=== PATIENT | female | born 1960 | race Caucasian/White ===

== ENCOUNTER 2020-01-02 17:12 | Emergency (ER) | payer MEDICARE ==
--- NOTE | 2020-01-02 18:10 | CT ---
CT OF THE BRAIN WITHOUT CONTRAST: 01/02/20 Comparison is made with the 11/14/08 study. There is no evidence of intracranial bleeding or mass. The ventricles are normal in size for age. Patchy hypolucency in the deep white matter is suggestive of chronic microvascular ischemia, however, there are multiple scattered lacunar infarcts present in thi s patient. These are present in the basal ganglia bilaterally and the thalami bilaterally, but the mo st striking findings are on the left side. A rather sizeable infarct is seen in the left thalamus and left basal ganglia region. My presumption is that these are old but they have occurred since the 13 12 study. Correlate with current clinical symptoms. IMPRESSION: 1. No acute intracranial bleeding. 2. Scattered lacunar infarcts, primarily basal ganglia and thalami, left more prominent than rig ht. Initial report discussed with Dr. Carpenter at 1757 on 01/02/20. POS: HOME
== END 2020-01-02 18:53 | disposition home or self-care (01) ==
LOC: BURERS 17:12
DX: R42 Dizziness and giddiness (principal); T42.6X5A Adverse effect of other antiepileptic and sedative-hypnotic drugs, initial encounter; I10 Essential (primary) hypertension; Z87.891 Personal history of nicotine dependence
CPT/HCPCS: 70450; 93005

== ENCOUNTER 2020-07-21 12:48 | Emergency (ER) | payer MEDICARE ==
[2020-07-21 13:39] LABS: INR-International Normal Ratio 1.1
[2020-07-21 13:48] LABS: #Basophils 0.1 thou/uL (0.0-0.2); #Eosinphils 0.2 thou/uL (0.0-0.7); #Lymphocytes 2.1 thou/uL (1.20-3.40); #Monocytes 0.5 thou/uL (0.11-0.59); #Neutrophils 5.1 thou/uL (1.40-6.50); %Basophils 1.1 % (0.0-1.0); %Eosinophils 1.9 % (0.0-10.0); %Lymphocytes 26.4 % (21.0-51.0); %Monocytes 6.7 % (0.0-10.0); %Neutrophils 63.9 % (42.0-75.0); Hemoglobin 15.3 g/dL (12.0-16.0); Mean Corpuscular HGB CONC 33.4 g/dL (32.0-36.0); Mean Corpuscular Hemoglobin 31.2 pg (27.0-31.0); Mean Corpuscular Volume 93.4 fL (78.0-98.0); Mean Platelet Volume 6.6 fL (7.4-10.4); Platelet Count 386 thou/uL (130-400); RBC Distribution Width 11.9 % (11.5-14.5); Red Blood Cell (RBC) Count 4.91 mill/uL (4.20-5.40); White Blood Cell (WBC) Count 7.9 thou/uL (4.8-10.8)
[2020-07-21 13:49] LABS: ALT (SGPT) 22 U/L (8-55); AST (SGOT) 18 U/L (5-34); Albumin 4.2 g/dL (3.4-4.8); Alkaline Phosphatase 121 U/L (40-110); Anion Gap 16 mmol/L (10-20); BUN (Urea Nitrogen) 10 mg/dL (9.8-20.1); Bilirubin, Total 0.3 mg/dL (0.2-1.2); Calc. Creatinine Clearance 0 mL/min (70-130); Calcium 9.5 mg/dL (7.8-10.44); Carbon Dioxide 26 mmol/L (23-31); Chloride 104 mmol/L (98-107); Globulin 3.5 g/dL (2.4-3.5); Glucose 133 mg/dL (80-115); Potassium 3.9 mmol/L (3.5-5.1); Protein, Total 7.7 g/dL (5.8-8.1); Sodium 142 mmol/L (136-145)
[2020-07-21] MEDS ORDERED: Aspirin Chewable 81 MG TAB ONE (14:16)
== END 2020-07-21 18:26 | disposition short-term general hospital (02) ==
LOC: BURERS 12:48
DX: R47.01 Aphasia (principal); Z79.899 Other long term (current) drug therapy; Z87.891 Personal history of nicotine dependence
CPT/HCPCS: 70450; 80053; 84484; 85025; 85610; 93005